=== PATIENT | female | born 1985 | race Two or more races ===

== ENCOUNTER 2021-01-31 15:59 | Inpatient (IN) | payer MEDICAID ==
[~2021-01-31] VITALS: Ht 152.4 cm; Wt 83.5 kg
[2021-01-31] MEDS ORDERED: SODIUM CHLORIDE 0.9% 1,000 ML IV ONE (16:30)
[2021-01-31] MEDS ORDERED: DIPHENHYDRAMINE 50MG CAPSULE PO ONE (17:00)
[2021-01-31] MEDS ORDERED: HYDROMORPHONE HCL/PF 2MG/ML CPJ IV ONE ×2 (17:00→20:30)
[2021-01-31 19:11] LABS: BASOPHILS % 0.8 % (0.0-2.0); EOSINOPHILS % 1.3 % (0.0-5.0); HEMATOCRIT. 28.6 % (36.0-48.0); HEMOGLOBIN. 8.8 g/dL (12.0-16.0); LYMPHOCYTES % 22.7 % (20.0-50.0); MEAN CORPUSCULAR HEMOGLOBIN 22.6 pg (28.0-32.0); MEAN CORPUSCULAR VOLUME 73.8 fL (81.0-99.0); MEAN PLATELET VOLUME 8.1 fl (7.4-10.4); MONOCYTES % 6.4 % (2.0-8.0); NEUTROPHILS % 68.8 % (40.0-76.0); PLATELET 446 x1000/uL (130-400); RED BLOOD CELL COUNT 3.87 mill/uL (4.2-5.4); RED CELL DISTRIBUTION WIDTH 20.1 % (11.6-14.6)
[2021-01-31 19:55] LABS: CHLORIDE 108 mEq/L (98-107)
[2021-02-01] MEDS ORDERED: ONDANSETRON HCL 4MG/2ML INJ IV PRN (00:30)
[2021-02-01] MEDS ORDERED: TRAZODONE HCL 50MG TABLET PO PRN (00:30)
[2021-02-01] MEDS ORDERED: ACETAMINOPHEN 325MG TABLET PO PRN (00:30)
[2021-02-01] MEDS: MORPHINE SULFATE 4 MG/ML CPJ (NOT FOR IM USE) IV PRN ×3 (00:47→12:32)
[2021-02-01] MEDS: SODIUM CHLORIDE 0.9% 1,000 ML IV SCH ×2 (00:56→14:06)
[2021-02-01 01:22] LABS: HEMATOCRIT 29.2 % (36.0-48.0); HEMOGLOBIN 8.7 g/dL (12.0-16.0); MEAN CORPUSCULAR HEMOGLOBIN 22.1 pg (28.0-32.0); MEAN CORPUSCULAR VOLUME 73.9 fL (81.0-99.0); PLATELET 415 x1000/uL (130-400); RED BLOOD CELL COUNT 3.95 mill/uL (4.2-5.4); RED CELL DISTRIBUTION WIDTH 20.3 % (11.6-14.6)
[2021-02-01] MEDS: MORPHINE SULFATE 2 MG/ML CPJ (NOT FOR IM USE) IV PRN ×2 (06:28→12:33)
[2021-02-01 08:00] VITALS: BP 121/51
[2021-02-01] MEDS: HEPARIN 5000 UNITS/ML VIAL SUBCUT SCH ×2 (09:00→20:36)
[2021-02-01 09:30] VITALS: BP 121/51
[2021-02-01] MEDS ORDERED: HYDR500C PO (10:51)
[2021-02-01] MEDS ORDERED: ASPI-1497 MT (10:51)
[2021-02-01] MEDS ORDERED: FOLI-43 MT (11:05)
[2021-02-01] MEDS: FOLIC ACID 1MG TABLET PO SCH (11:33)
[2021-02-01] MEDS ORDERED: HYDROXYUREA 500MG CAPSULE PO NR (12:00)
[2021-02-01 12:27] VITALS: BP 133/79
[2021-02-01] MEDS: HYDROMORPHONE HCL/PF 2MG/ML CPJ IV PRN ×3 (14:49→22:49)
[2021-02-01 15:37] LABS: CHLORIDE 108 mEq/L (98-107)
[2021-02-01 16:17] LABS: FERRITIN 6 ng/mL (10-291)
[2021-02-01 16:19] LABS: TOTAL IRON BINDING CAPACITY 327 ug/dL (250-450)
[2021-02-01 16:23] VITALS: BP 119/74
[2021-02-01 17:12] LABS: VITAMIN B12 SERUM 809 pg/mL (211-911)
[2021-02-01 17:20] LABS: FOLIC ACID (FOLATE) SERUM > 20.00 ng/mL (>5.38)
[2021-02-01 19:47] LABS: *AMPHETAMINES SCREEN URINE NEGATIVE (NEGATIVE)
[2021-02-01 19:48] LABS: *BENZODIAZEPINES SCREEN URINE NEGATIVE (NEGATIVE)
[2021-02-01 19:49] LABS: *COCAINE SCREEN URINE NEGATIVE (NEGATIVE); METHADONE URINE SCREEN NEGATIVE (NEGATIVE); PHENCYCLIDINE URINE SCREEN NEGATIVE (NEGATIVE)
[2021-02-01 19:50] LABS: *BARBITURATES SCREEN URINE NEGATIVE (NEGATIVE)
[2021-02-01 19:54] LABS: CANNABINOID URINE SCREEN PRESUMTIVE POSITIVE (NEGATIVE); OPIATES URINE SCREEN PRESUMTIVE POSITIVE (NEGATIVE)
[2021-02-01 20:42] VITALS: BP 105/54
[2021-02-01] MEDS: DIPHENHYDRAMINE 50MG/ML VIAL IV PRN (22:50)
[2021-02-02] VITALS: BP 105/59
[2021-02-02] MEDS: SODIUM CHLORIDE 0.9% 1,000 ML IV SCH ×2 (02:00→14:53)
[2021-02-02] MEDS: HYDROMORPHONE HCL/PF 2MG/ML CPJ IV PRN ×5 (02:54→19:47)
[2021-02-02 04:00] VITALS: BP 110/67
[2021-02-02] MEDS: DIPHENHYDRAMINE 50MG/ML VIAL IV PRN ×3 (06:45→23:05)
[2021-02-02 08:00] VITALS: BP 127/61
[2021-02-02] MEDS: HEPARIN 5000 UNITS/ML VIAL SUBCUT SCH ×2 (09:00→20:06)
[2021-02-02] MEDS: FOLIC ACID 1MG TABLET PO SCH (09:22)
[2021-02-02 09:40] LABS: BASOPHILS % 1.1 % (0.0-2.0); EOSINOPHILS % 4.8 % (0.0-5.0); HEMATOCRIT. 28.6 % (36.0-48.0); HEMOGLOBIN. 8.8 g/dL (12.0-16.0); LYMPHOCYTES % 38.4 % (20.0-50.0); MEAN CORPUSCULAR HEMOGLOBIN 22.7 pg (28.0-32.0); MEAN CORPUSCULAR VOLUME 73.3 fL (81.0-99.0); MEAN PLATELET VOLUME 7.9 fl (7.4-10.4); MONOCYTES % 9.5 % (2.0-8.0); NEUTROPHILS % 46.2 % (40.0-76.0); PLATELET 348 x1000/uL (130-400)
[2021-02-02 10:13] LABS: CHLORIDE 108 mEq/L (98-107)
[2021-02-02 12:00] VITALS: BP_SYST 130; BP_SYST 143; BP_DIAS 79; BP_DIAS 92
[2021-02-02] MEDS ORDERED: HYDROXYUREA 500MG CAPSULE PO SCH (13:00)
[2021-02-02] MEDS: HYDROXYUREA 500MG CAPSULE PO SCH (14:51)
[2021-02-02 16:00] VITALS: BP 128/72
[2021-02-02] MEDS: FERROUS SULFATE 325MG TABLET PO SCH (18:13)
[2021-02-02 19:44] VITALS: BP 114/75
[2021-02-03] VITALS: BP 120/64
[2021-02-03] MEDS: HYDROMORPHONE HCL/PF 2MG/ML CPJ IV PRN ×5 (00:44→19:55)
[2021-02-03] MEDS: SODIUM CHLORIDE 0.9% 1,000 ML IV SCH ×2 (03:00→14:41)
[2021-02-03 04:00] VITALS: BP 130/69
[2021-02-03] MEDS: DIPHENHYDRAMINE 50MG/ML VIAL IV PRN ×2 (06:58→15:04)
[2021-02-03 08:00] VITALS: BP 116/51
[2021-02-03] MEDS: FOLIC ACID 1MG TABLET PO SCH (08:41)
[2021-02-03] MEDS: HYDROXYUREA 500MG CAPSULE PO SCH (08:42)
[2021-02-03] MEDS: FERROUS SULFATE 325MG TABLET PO SCH ×3 (08:42→17:07)
[2021-02-03] MEDS: HEPARIN 5000 UNITS/ML VIAL SUBCUT SCH (08:42)
[2021-02-03 09:34] LABS: BASOPHILS % 0.9 % (0.0-2.0); EOSINOPHILS % 4.9 % (0.0-5.0); HEMATOCRIT. 31.3 % (36.0-48.0); HEMOGLOBIN. 9.5 g/dL (12.0-16.0); MEAN CORPUSCULAR HEMOGLOBIN 22.4 pg (28.0-32.0); MEAN CORPUSCULAR VOLUME 73.7 fL (81.0-99.0); MEAN PLATELET VOLUME 7.9 fl (7.4-10.4); MONOCYTES % 8.9 % (2.0-8.0); NEUTROPHILS % 44.3 % (40.0-76.0); PLATELET 359 x1000/uL (130-400); RED BLOOD CELL COUNT 4.24 mill/uL (4.2-5.4); RED CELL DISTRIBUTION WIDTH 19.6 % (11.6-14.6)
[2021-02-03 09:45] LABS: CHLORIDE 106 mEq/L (98-107)
[2021-02-03] MEDS ORDERED: FERR325T23 PO (11:34)
[2021-02-03 12:00] VITALS: BP 136/86
[2021-02-03 17:58] VITALS: BP 130/84
[2021-02-03 19:55] VITALS: BP 128/78
[2021-02-07 10:07] LABS: HGB A2 2.1 % (1.8-3.2)
== END 2021-02-03 21:05 | disposition home or self-care (01) | DRG 662 ==
LOC: ER 15:59 → MICUSO 20:45 → EDBEDREQTM 20:49 → EDBEDREQ 20:49 → 6WST 02-01 07:24
PROVIDERS: ADMIT Family Medicine Adult Medicine; ATTEND Family Medicine Adult Medicine
DX: D57.819 Other sickle-cell disorders with crisis, unspecified (principal); Z91.14 Patient's other noncompliance with medication regimen; E66.9 Obesity, unspecified; E87.8 Other disorders of electrolyte and fluid balance, not elsewhere classified; D50.9 Iron deficiency anemia, unspecified; R07.89 Other chest pain; F17.200 Nicotine dependence, unspecified, uncomplicated; G89.29 Other chronic pain; I11.9 Hypertensive heart disease without heart failure; Z79.82 Long term (current) use of aspirin; Z90.49 Acquired absence of other specified parts of digestive tract; Z88.0 Allergy status to penicillin; Z79.899 Other long term (current) drug therapy; Z68.35 Body mass index [BMI] 35.0-35.9, adult; D57.01 Hb-SS disease with acute chest syndrome; M25.562 Pain in left knee
CPT/HCPCS: 36415; 71045; 73562; 80048; 80053; 80305; 82607; 82728; 82746; 83021; 83540; 83550; 83615; 83735; 85025; 85027; 85044; 85660; 93005; 93306; 97162; 99285; J1170; J1200; J1644; J2270; J7030; Q0163